=== PATIENT | female | born 1990 | race African-American/Black ===

== ENCOUNTER 2018-10-15 21:00 | Emergency (ER) | payer SELFPAY ==
--- NOTE | 2018-10-15 22:14 | RAD ---
TWO VIEW CHEST: 10/15/18 No prior comparison. INDICATION: Chest pain. FINDINGS: There is no consolidation, effusion or pneumothorax. The cardiac silhouette is normal in size. There are chronic osseous deformities of the superolateral left ribs. IMPRESSION: No focal consolidation. 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 POS: [facility]
== END 2018-10-15 22:17 | disposition home or self-care (01) ==
LOC: SCSER 21:00
DX: J10.1 Influenza due to other identified influenza virus with other respiratory manifestations (principal)
CPT/HCPCS: 71046; 87804